=== PATIENT | female | born 1980 ===

== ENCOUNTER 2021-10-23 14:51 | Outpatient (CLI) | payer MEDICAID, SELFPAY | END 2021-10-23 14:52 | disposition home or self-care (01) | LOC: SPT 14:53 | PROVIDERS: Visit Provider Podiatrist Foot & Ankle Surgery | DX: S93.409S Sprain of unspecified ligament of unspecified ankle, sequela (principal); X58.XXXD Exposure to other specified factors, subsequent encounter | CPT/HCPCS: 97760; L1902 ==

== ENCOUNTER 2022-02-23 05:05 | Inpatient (IN) | payer MEDICAID, SELFPAY ==
--- NOTE | 2022-02-15 09:14 | ANES.PREANE2 ---
Pre-Anesthetic Assessment Height/Weight: Height 1.55 m Operation Date: 02/23/22 07:00 Proposed Procedures p Section Repeat(Not Applicable) - Franklin Mccoy MD Familial anesthetic complications: [place] shoulder pain with first (diaphragmatic irritation from air), 2nd intense purititis in recovery Social No alcohol and No tobacco Exam alert, oriented x 3, clear to auscultation bilaterally and regular rate & rhythm Airway Mallampati: Class I Dentition: full Pulmonary None reported CV/HEM None reported preeclampsia w/ first child None reported Hepatic None reported GI None reported Metabolic None reported Musc/skel None reported Neuropsych None reported Anesthetic Plan ASA status: 2 Anesthesia: Regional (specify below) (spinal) Risk of > 500 ml blood loss (7ml/kg in children): No Medications/Allergies Home Medications Medication Instructions Recorded Confirmed Last Taken Type ASO #1 ea 10/23/21 10/23/21 Unknown Rx No Known Home Medications 10/23/21 10/23/21 Unknown History Allergies Allergy/AdvReac Type Severity Reaction Status Date / Time Penicillins Allergy Severe ALGY-Difficulty Verified 10/23/21 14:24 Breathing Sulfa (Sulfonamide Allergy Severe ALGY-Difficulty Verified 10/23/21 14:24 Antibiotics) Breathing Data Anesthesia Cardiac Studies: No Data to Display
[2022-02-23] VITALS (24 sets, daily range): BP systolic 103–149; BP diastolic 60–78; PULSE 62–76; RESP 15–16; TEMP 36.4–36.8; O2SAT 94–100
[2022-02-23 05:53] LABS: Basophils % 0.2 %; Eosinophils # 0.1 10^3/uL (0.0-0.8); Eosinophils % 0.6 %; Lymphocytes # 2.3 10^3/uL (0.8-4.8); Lymphocytes % 27.2 %; Mean Corpuscular HGB Conc 33.3 g/dL (30.0-36.0); Mean Corpuscular Hemoglobin 28.2 pg (28.0-34.0); Mean Corpuscular Volume 84.5 fl (81-99); Mean Platelet Volume 10.3 fL (7.4-10.4); Monocytes # 0.8 10^3/uL (0.2-0.9); Monocytes % 9.4 %; Neutrophils # 5.36 10^3/uL (1.8-7.7); Neutrophils % 62.3 %; Nucleated Red Blood Cells % 0 %; Platelet Count 277 10^3/cmm (130-400); Red Blood Count 4.26 10^6/uL (4.1-5.3); Red Cell Distribution Width 13.2 % (12.1-15.1); White Blood Count 8.6 10^3/uL (4.0-10.0)
[2022-02-23] MEDS: lactated ringers 1,000 ML 999 ML IV (06:04)
[2022-02-23] MEDS: gentamicin inj 120 MG in sodium chloride 0.9% (100 ml) 100 ML 103 MG IV (06:26)
--- NOTE | 2022-02-23 06:35 | ANES.PAUD2 ---
Pre-Anesthetic Update Pre-Anesthetic Assessment: Date of Surgery/Procedure: 02/23/22 Proposed Procedure: Operation Date: 02/23/22 07:00 Proposed Procedures p Section Repeat(Not Applicable) - Franklin Mccoy MD Any changes to Pre-Anesthetic Assessment?: No Last Intake: Intake Last Liquid Date 02/22/22 Last Liquid Time 22:30 Last Solid Date 02/22/22 Last Solid Time 20:00 Labs Last 48hrs: Short CBC 02/23/22 Range/Units 05:45 WBC 8.6 (4.0-10.0) 10^3/ uL Hgb 12.0 (11.5-15.3) g/dL Hct 36.0 L (37.0-47.0) % MCV 84.5 (81-99) fl Plt Count 277 (130-400) 10^3/c mm Neut % (Auto) 62.3 % Neut # (Auto) 5.36 (1.8-7.7) 10^3/u L Vitals: Pulse Rhythm 02/23/22 06:13 Pulse Strength 3+ Normal 02/23/22 06:13 Respiratory Rate 16 02/23/22 05:28 Respiratory Effort Non-Labored 02/23/22 06:13 Respiratory Depth Normal 02/23/22 06:13 Respiratory Patter n 02/23/22 06:13 Oxygen Delivery Me thod 02/23/22 06:13 Exam: Pre-Anes Outpt Exam: alert, oriented x 3, clear to auscultation bilaterally and regular rate & rhythm Cardiac Studies: No Data to Display
[2022-02-23] MEDS: famotidine 20 mg/2 mL INJ IVP (06:40)
[2022-02-23] MEDS: metoclopramide 5 mg/mL SDV 2 mL 10 MG IVP (06:40)
[2022-02-23] MEDS: citric acid-sodium citrate 30 mL UDC PO (06:41)
--- NOTE | 2022-02-23 06:50 | P.HP_ITS ---
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 Her has been unremarkable. There have been no complications. Her labs are as follows. Her blood type is B+. She is antibody negative. Her glucose screen was 117. She is GBS negative. The remainder of her infectious disease panel was within normal limits. Present Details : 4 Para: 3 Labs Rubella: Immune RPR: Negative GBS: Negative Review of Systems General: Reports: 10 or more systems reviewed and unremarkable except in HPI and below Const: Reports: fatigue; Denies: fever(s) Eyes: Denies: change in vision Card: Denies: chest pain Musc: Reports: back pain Erick/Lymph: Denies: easy bruising Medications/Allergies Home Medications Medication Instructions Recorded Confirmed Last Taken Type prenat.vits,wilner,kpg-ugef-qeiil 1 tab PO DAILY 02/23/22 02/23/22 02/21/22 History Allergies Allergy/AdvReac Type Severity Reaction Status Date / Time Penicillins Allergy Severe ALGY-Difficulty Verified 02/23/22 05:34 Breathing Sulfa (Sulfonamide Allergy Severe ALGY-Difficulty Verified 02/23/22 05:34 Antibiotics) Breathing Vitals/I&O/Wt Last Vital Signs Resp 16 02/23/22 05:28 Weight last 48 hrs Weight 173 lb Physical Exam Const: COMMON NORMALS: patient oriented x3 and alert HENMT: COMMON NORMALS: moist oral mucous membranes HEAD & SCALP: normal to inspection Chest: COMMONS NORMALS: normal inspection of the chest Resp: COMMON NORMALS: clear to auscultation bilaterally AUSCULTATION: clear to auscultation bilaterally Cardio: COMMON NORMALS: regular rate and regular rhythm RATE: regular rate RHYTHM: regular rhythm GI: INSPECTION: Yes normal to inspection and Yes other (Gravid) Extremity: COMMON NORMALS: normal to inspection GENERAL: Yes edema (Trace) Neuro: COMMON NORMALS: patient oriented x3, moves all extremities and no sensory deficits noted SENSORIUM/ORIENTATION: Yes alert Psych: COMMON NORMALS: mental status grossly normal Skin: COMMON NORMALS: no rashes or lesions noted GENERAL SKIN EXAM: no rashes or lesions noted Data : 02/23/22 05:45 A&P Assessment and plan (1) 39 weeks gestation of : Status: Acute (2) History of : We will proceed with a repeat section. We have discussed the risks of bleeding, infection, and damage to intra-abdominal organs. She and her have no further questions and wished to proceed. Status: Acute Attestations Medical Necessity Statement*: Routine and post care. Coding Level of Care Code Acute Paperboard Machine Operator for Chg Fwd Exam Comprehensive Diagnoses 39 weeks gestation of Z3A.39 History of Z98.891
--- NOTE | 2022-02-23 07:55 | ANES.PROC ---
Anesthesia Procedures Procedure/Date: 02/23/22 Other Information: Patient in sitting position. Full monitors, simpe mask 10 LPM. Time out. Cap, mask donned by all staff present. Sterile prep w/ Chlorprep. Drape. 1% lidocaine skin wheel. Introducer. 24 g Pencan, + birefringence, no heme. 1.6 ml 0.75% bupivacaine w/ dextrose, morphine PF 0.2 mg, fentanyl 20 mcg. Tolerated well. Good block.
--- NOTE | 2022-02-23 08:35 | P.OP_ITS ---
Operative Report Date of procedure: February 23, 2022 Pre-op diagnosis: 1. 41-year-old 4 para 3-0-0-3 at 39 weeks estimated gestational age presenting for a repeat section Post-op diagnosis: Same Procedure done: Repeat lower transverse section Specimens removed/disposition: 1. A female with a weight of 7 pounds 4 ounces and Apgars of 7,8,9 2. Placenta with a three-vessel cord delivered intact Surgeon: Franklin Mccoy Estimated blood loss (mL): 600 Brief History: Refer to history and physical Procedure: The patient was brought back to the operating room where she was prepped and draped in usual sterile fashion. Anesthesia was found to be adequate. A lower transverse skin incision was then made with a #10 blade. I then dissected down to the underlying subcutaneous tissue until arriving at the prerectal fascia. The fascia was then nicked with the scalpel bilaterally. The fascial incisions were then carried laterally with [place] scissors. Attention was then turned to the superior aspect of the incision which was grasped with kochers and tented up away from the underlying rectus abdominis muscles. The muscles were then d issected away from the fascia manually, and later with [place] scissors. Attention was then turned to the inferior aspect of the incision, and the fascia was dissected away from the underlying muscle in similar fashion. The rectus abdominis muscles were then spread manually. The peritoneum was entered manually. Excellent visualization of the uterus was noted. A lower transverse uterine incision was then made with a #10 blade. Upon arriving at the intrauterine cavity, the uterine incision was then extended manually. The infant was noted to be in vertex position. The baby was delivered without difficulty. After delivery of the head, the mouth and nose were suctioned at the site of the incision. There was no meconium. There was no nuchal cord. The remainder of the body was then delivered and placed on the abdomen. The cord was cut and clamped. The baby was then handed to the waiting nurse. The placenta was removed intact. The uterus was externalized. The intrauterine cavity was cleansed of any remaining debris. The uterine incision was reapproximated in 2 layers. The first layer was performed with 0 Vicryl in a running locked stitch. The second layer was an imbricating stitch also using 0 Vicryl. The uterus was replaced into the abdomen. The peritoneum was then irrigated with warm saline. I reexamined the uterine incision and found it to be hemostatic. The rectus abdominis muscles were then reapproximated using 0 Vicryl in a running stitch. The fascia was then reapproximated using 0 Vicryl in running stitch. The subcutaneous tissue was reapproximated using 0 Vicryl in a running stitch. The skin was reapproximated using 4-0 Vicryl in a running subcuticular stitch using a Moses needle. Steri-Strips were placed. A Sterile dressing was placed. All counts were correct x2. Both the mother and baby were in stable condition.
--- NOTE | 2022-02-23 08:44 | ANE.PACU2 ---
Inpatient post-anesthesia follow up: Airway intact: Yes Vital signs: Temperature Pulse Rate 70 Respiratory Rate 16 Blood Pressure Pulse Oximetry Oxygen Delivery Me thod Room Air Oxygen Flow Rate Fraction of Inspir ed Oxygen Hydration adequate: Yes Nausea and vomiting: No Pain level: 1 Mental status: Baseline
[2022-02-23] MEDS: diphenhydrAMINE 50 mg/mL SDV 1mL 25 MG IVP (13:47)
[2022-02-23] MEDS: ketorolac 30 mg/mL INJ IVP ×2 (14:17→20:28)
[2022-02-23] MEDS: lanolin oint 7 gm 1 APPLIC TOPICAL (14:29)
[2022-02-23] MEDS: lactated ringers 1,000 ML 125 ML IV ×2 (14:30→23:04)
[2022-02-23] MEDS: simethicone 80 mg Chew PO (16:56)
[2022-02-23] MEDS: docusate sodium 100 mg Capsule PO (16:56)
[2022-02-23 21:14] LABS: Hematocrit 31.7 % (37.0-47.0); Hemoglobin 10.3 g/dL (11.5-15.3); Mean Corpuscular HGB Conc 32.5 g/dL (30.0-36.0); Mean Corpuscular Hemoglobin 28.1 pg (28.0-34.0); Mean Corpuscular Volume 86.4 fl (81-99); Mean Platelet Volume 10.6 fL (7.4-10.4); Platelet Count 230 10^3/cmm (130-400); Red Blood Count 3.67 10^6/uL (4.1-5.3); Red Cell Distribution Width 13.5 % (12.1-15.1); White Blood Count 9.4 10^3/uL (4.0-10.0)
[2022-02-24 03:10] VITALS: BP 113/67; PULSE 74; RESP 16; TEMP 36.8; O2SAT 95
[2022-02-24] MEDS: ketorolac 30 mg/mL INJ IVP (03:10)
--- NOTE | 2022-02-24 06:59 | PM.OBGYPN ---
PIPE COREMAKER Subjective Subjective: Interval history: The patient has been doing well. Her pain is still a concern, and we are adjusting her regimen accordingly. She has passed flatus. She is breast-feeding well. She has minimal bleeding. Labor: Monitor Mode: External Contraction Pattern: Irregular Vitals/I&O/Wt Last Vital Signs Temp 98.1 F 02/23/22 23:14 Pulse 70 02/23/22 23:14 Resp 15 02/23/22 23:14 BP 114/73 02/23/22 23:14 Pulse Ox 97 02/23/22 23:14 O2 Del Method 02/23/22 23:14 02/23/22 02/23/22 02/24/22 14:59 22:59 06:59 Intake Total 1400 / 1400 1000 / 2400 Output Total 1550 / 1550 400 / 1950 Balance -150 / -150 600 / 450 Weight last 48 hrs Weight 173 lb Physical Exam Narrative: She is in no acute distress Lungs are clear auscultation bilaterally Her heart has a regular rate and rhythm Her fundus is below the umbilicus and firm Her dressing is clean, dry and intact Her extremities have trace edema Urinary Catheter Management: Currie: Cath Placed During This Visit: yes Reason for Continuing Indwelling Catheter: Perioperative Use in Selected Surgeries Urinary Catheter Date of Insertion: 02/23/22 Urinary Catheter Time of Insertion: 07:17 Data : 02/23/22 20:40 A&P Assessment and plan (1) 39 weeks gestation of : Status: Resolved (2) History of : Status: Resolved (3) Status post : I anticipate routine postoperative care. Status: Acute Attestations Medical Necessity Statement*: Routine and post care Coding Level of Care Code Acute Turning Machine Operator for Chg Fwd Diagnoses 39 weeks gestation of Z3A.39 History of Z98.891 Status post Z98.891
[2022-02-24] MEDS: prenatal vitamin Capsule 1 CAP PO (08:29)
[2022-02-24] MEDS: docusate sodium 100 mg Capsule PO ×2 (08:30→16:56)
[2022-02-24] MEDS: HYDROcodone-acetaminophen 5-325 mg Tablet PO ×5 (08:30→23:59)
[2022-02-24] MEDS: ibuprofen 800 mg tablet PO ×3 (08:31→19:57)
[2022-02-24 10:05] VITALS: BP 102/67; PULSE 80; RESP 16; TEMP 36.9
[2022-02-24 15:39] VITALS: BP 117/73; PULSE 84; RESP 16; TEMP 36.4; O2SAT 96
--- NOTE | 2022-02-24 16:48 | ANE.PACU2 ---
Inpatient post-anesthesia follow up: Airway intact: Yes Vital signs: Temperature 97.6 F Pulse Rate 84 Respiratory Rate 16 Blood Pressure 117/73 Pulse Oximetry 96 Oxygen Delivery Me thod Room Air Oxygen Flow Rate Fraction of Inspir ed Oxygen Hydration adequate: Yes Nausea and vomiting: No Pain level: 3 Mental status: Baseline
[2022-02-24] MEDS: acetaminophen 325 mg Tablet 650 MG PO (17:29)
[2022-02-24 21:30] VITALS: BP 123/81; PULSE 89; TEMP 36.7; O2SAT 96
[2022-02-25] MEDS: HYDROcodone-acetaminophen 5-325 mg Tablet PO ×2 (03:52→08:01)
[2022-02-25 04:05] VITALS: BP 128/81; PULSE 84; TEMP 36.4; O2SAT 96
--- NOTE | 2022-02-25 06:50 | P.DS_ITS ---
Discharge Providers ELECTRONICS INSPECTOR Date of Admission: 02/23/22 05:05 Date of Discharge: 02/27/22 Attending Provider at Admission: Franklin Mccoy MD Attending Provider at Discharge: Franklin Mccoy MD Primary Care Provider: Franklin Mccoy MD Diagnoses at Discharge Discharge Diagnosis (1) 39 weeks gestation of : Status: Resolved (2) History of : Status: Resolved Reason for Visit Reason for Visit: Repeat Hospital Course Hospital Course The patient presented to the hospital for a scheduled section. Her C- section was unremarkable. Her postoperative course was also unremarkable. Her bleeding was within normal limits. Her pain was within normal limits. She ambulated without difficulty. She passed flatus, and advance her diet without problems. Information Peripartum Data: Infant Delivery Method: Physical Exam Narrative: She is in no acute distress Lungs are clear auscultation bilaterally Her heart has a regular rate and rhythm Her fundus is below the umbilicus and firm Her incision is clean, dry and intact Her extremities have trace edema Urinary Catheter Management: Currie: Cath Placed During This Visit: yes, but has since been removed by the nurse Reason for Continuing Indwelling Catheter: Decision to DC Catheter Urinary Catheter Date of Insertion: 02/23/22 Urinary Catheter Time of Insertion: 07:17 Date Urinary Catheter Removed: 02/24/22 Time Urinary Catheter Discontinued: 12:00 Discharge Data Studies Completed and Pending Laboratory Results WBC 9.4 10^3/uL (4.0-10.0) 02/23/22 20:40 RBC 3.67 10^6/uL (4.1-5.3) L 02/23/22 20:40 Hgb 10.3 g/dL (11.5-15.3) L 02/23/22 20:40 Hct 31.7 % (37.0-47.0) L 02/23/22 20:40 MCV 86.4 fl (81-99) 02/23/22 20:40 MCH 28.1 pg (28.0-34.0) 02/23/22 20:40 MCHC 32.5 g/dL (30.0-36.0) 02/23/22 20:40 RDW 13.5 % (12.1-15.1) 02/23/22 20:40 Plt Count 230 10^3/cmm (130-400) 02/23/22 20:40 MPV 10.6 fL (7.4-10.4) H 02/23/22 20:40 Neut % (Auto) 62.3 % 02/23/22 05:45 Lymph % (Auto) 27.2 % 02/23/22 05:45 [place] % (Auto) 9.4 % 02/23/22 05:45 Eos % (Auto) 0.6 % 02/23/22 05:45 Baso % (Auto) 0.2 % 02/23/22 05:45 Neut # (Auto) 5.36 10^3/uL (1.8-7.7) 02/23/22 05:45 Lymph # (Auto) 2.3 10^3/uL (0.8-4.8) 02/23/22 05:45 [place] # (Auto) 0.8 10^3/uL (0.2-0.9) 02/23/22 05:45 Eos # (Auto) 0.1 10^3/uL (0.0-0.8) 02/23/22 05:45 Baso # (Auto) 0.0 10^3/uL (0.0-0.1) 02/23/22 05:45 Nucleated RBC % (auto) 0 % 02/23/22 05:45 Nucleated RBCs # 0.0 /100WBC 02/23/22 05:45 Blood Type B Positive 02/23/22 05:45 Rho(D) Type Positive 02/23/22 05:45 Antibody Screen Negative 02/23/22 05:45 Vitals Last Vital Signs Temp 97.6 F 02/25/22 04:05 Pulse 84 02/25/22 04:05 Resp 16 02/24/22 15:39 BP 128/81 02/25/22 04:05 Pulse Ox 96 02/25/22 04:05 O2 Del Method 02/25/22 04:05 Discharge Plan Discharge Patient Disposition: Home Condition: Stable Prescriptions: New ibuprofen 800 mg Tablet 800 mg PO TID Qty: 45 0RF hydrocodone-acetaminophen 5-325 mg Tablet 1 tab PO Q4H PRN (Reason: Moderate To Severe Pain) Qty: 28 0RF docusate sodium 100 mg Capsule 100 mg PO BID Qty: 14 0RF Continued prenat.vits,wilner,[id number]-ysajk Tablet 1 tab PO DAILY Discharge Orders: Discharge Order (Routine); Ordered 02/25/22 Ordered By: Franklin Mccoy Referrals: Franklin Mccoy MD [Primary Care Provider] - 03/01/22 9:30 am (Incision check scheduled for Tuesday03/01/22 @9:30. Baby's appointment immediately following. Please schedule your 6 week post- appointment at this time. ) Discharge Diet: Usual diet Discharge Activity: Limit activity as instructed Patient Instructions: Depression (DC), Bleeding (DC), Preeclampsia and Eclampsia After Delivery (GEN), OB - Nadine/Sandra, OB Discharge Report, OB Food/Drug Interaction Guide, OB Care at Home, Opioid Safety Discharge Attestations ELECTRONICS INSPECTOR Time Spent in Discharge Care*: less than 30 min Coding Level of Care Code Acute Histology Specialist for Chg Fwd Diagnoses 39 weeks gestation of Z3A.39 History of Z98.891
[2022-02-25 08:00] VITALS: BP 124/83; PULSE 81; RESP 16; TEMP 37.1
[2022-02-25] MEDS: docusate sodium 100 mg Capsule PO (08:01)
[2022-02-25] MEDS: prenatal vitamin Capsule 1 CAP PO (08:01)
[2022-02-25] MEDS: ibuprofen 800 mg tablet PO (08:01)
[2022-02-25 11:20] VITALS: BP 121/82; PULSE 73; RESP 18; TEMP 36.4; O2SAT 97
== END 2022-02-25 11:15 | disposition home or self-care (01) | DRG 788 ==
PROVIDERS: Admitting Provider Family Medicine; PCP Family Medicine; Visit Provider Family Medicine
PROC: 10D00Z1 Extraction of Products of Conception, Low, Open Approach (ICD-10-PCS; CPT 59514; principal; 2022-02-23 07:00)
DX: O34.211 Maternal care for low transverse scar from previous cesarean delivery (principal); Z3A.39 39 weeks gestation of pregnancy; Z37.0 Single live birth
CPT/HCPCS: 12345; 36415; 51702; 59025; 85025; 85027; 86850; 86900; J1200; J1580; J1885; J2250; J2274; J2370; J2405; J2765; J3010; J3490